=== PATIENT | female | born 1970 | race Hispanic/Latino ===

== ENCOUNTER → 2017-12-19 | Outpatient (CLI) | payer OTHER, SELFPAY | END | disposition home or self-care (01) | LOC: RAH 08:28 | DX: Z12.31 Encounter for screening mammogram for malignant neoplasm of breast (principal) | CPT/HCPCS: 77067 ==

== ENCOUNTER → 2019-01-06 | Outpatient (CLI) | payer OTHER | END | disposition home or self-care (01) | LOC: RAH 09:13 | DX: Z12.31 Encounter for screening mammogram for malignant neoplasm of breast (principal) | CPT/HCPCS: 77067 ==

== ENCOUNTER → 2019-08-12 | Outpatient (CLI) | payer OTHER, SELFPAY ==
[~2019-08-12] MED LIST: IOHEXOL-350 75 ML VIAL IV ONE
== END | disposition home or self-care (01) ==
LOC: CANPRECLI → RAH 09:37
PROVIDERS: ATTEND Family Medicine
DX: R10.12 Left upper quadrant pain (principal)
CPT/HCPCS: 74178; Q9967

== ENCOUNTER → 2020-02-03 | Outpatient (CLI) | payer OTHER | END | disposition home or self-care (01) | LOC: RAH 11:13 | DX: Z12.31 Encounter for screening mammogram for malignant neoplasm of breast (principal) | CPT/HCPCS: 77067 ==

== ENCOUNTER → 2021-03-02 | Outpatient (CLI) | payer OTHER | END | disposition home or self-care (01) | LOC: RAH 14:28 | PROVIDERS: ATTEND Specialist | DX: Z12.31 Encounter for screening mammogram for malignant neoplasm of breast (principal) | CPT/HCPCS: 77067 ==

== ENCOUNTER → 2021-06-15 | Outpatient (CLI) | payer OTHER | END | disposition home or self-care (01) | LOC: RAH 09:59 | PROVIDERS: ATTEND Internal Medicine Gastroenterology | DX: R19.00 Intra-abdominal and pelvic swelling, mass and lump, unspecified site (principal); N85.2 Hypertrophy of uterus; K76.89 Other specified diseases of liver | CPT/HCPCS: 74178; Q9967 ==

== ENCOUNTER → 2022-03-27 | Outpatient (CLI) | payer OTHER | END | disposition home or self-care (01) | LOC: RAH 13:19 | PROVIDERS: ATTEND Obstetrics & Gynecology | DX: Z12.31 Encounter for screening mammogram for malignant neoplasm of breast (principal) | CPT/HCPCS: 77067 ==

== ENCOUNTER → 2023-04-02 | Outpatient (CLI) | payer SELFPAY | END | disposition home or self-care (01) | LOC: RAH 15:07 | PROVIDERS: ATTEND Obstetrics & Gynecology | DX: Z12.31 Encounter for screening mammogram for malignant neoplasm of breast (principal) | CPT/HCPCS: 77067 ==